=== PATIENT | male | born 1995 | race Hispanic/Latino ===

== ENCOUNTER 2022-11-29 14:07 | Emergency (ER) | payer SELFPAY ==
--- NOTE | ~2022-11-29 | CT_ITS ---
EXAMINATION: CT brain wo con DATE: 11/29/2022 20:42 INDICATION: Head trauma with subsequent headache for 4 days. Blurred vision in left eye. TECHNIQUE: Computed tomography (CT) of the head was performed without intravenous contrast. The mA wa s adjusted according to patient size. Iterative reconstruction technique was employed. Exam dose: 60 5.33 mGy-cm total exam DLP. COMPARISON: None FINDINGS: No intracranial mass lesion or hemorrhage or cerebrovascular accident. No midline shift or mass effect effect. Normal ventricular size. Normal marmolejo-white matter differentiation. No subdural or epidural hematoma. Disconjugate gaze is noted.. No fracture or bone destruction of the cranial vault. Included paranasal sinuses and mastoid air cells are well-developed and aerated. IMPRESSION: Disconjugate gaze. No intracranial abnormality is detected Reviewed, dictated and finalized at [facility]. Reviewed, dictated and finalized at [facility].
[2022-11-29 14:43] VITALS: BP 137/71; PULSE 72; RESP 16; TEMP 36.6; O2SAT 100
[2022-11-29] MEDS: SODIUM CHLORIDE 0.9% IV 1,000 ML 999 ML IV CONT (20:32)
--- NOTE | 2022-11-29 20:32 | ED.GENADULT ---
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 Reports headache is primarily on the left side and radiates somewhat into the left side of the face. States he has had intermittent vision blurring of the left eye since the injury. Also reports associated nausea. Denies any LOC at the time of injury. Denies numbness, weakness, speech change, inability to walk, dizziness, lightheadedness, any further site of pain or injury <MALI Erickson Last Filed: 11/29/22 22:45> Related Data Allergies/adverse reactions: Allergies Allergy/AdvReac Type Severity Reaction Status Date / Time No Known Allergies Allergy Verified 11/29/22 20:28 <Adam Whitfield PA-C - Last Filed: 11/29/22 22:45> Review of Systems Review of Systems: All systems as dictated in HPI <MALI Erickson Last Filed: 11/29/22 22:45> Exam Narrative: GENERAL: Well-appearing, well-nourished, and in no acute distress. HEAD: Normocephalic, atraumatic. EYES: PERRLA and EOMI. he does have some mild pain of the left eye with extraocular movements. ENT: Nares clear, no rhinorrhea or epistaxis. Mucous membranes moist. Oropharynx without tonsillar hypertrophy exudate or other lesions. NECK: Supple. No adenopathy or masses. CHEST: No respiratory distress. Clear to auscultation. No wheezes rales or rhonchi HEART: Regular rate and rhythm. No murmur heard. Normal peripheral pulses. ABDOMEN: Soft, nontender, nondistended, normal active bowel sounds. MSK: Normal range of motion. No edema. SKIN: Warm, dry, no rash. No wounds. NEURO: Alert and oriented x3. No focal deficits. Cranial nerves II through XII intact. 5 out of 5 strength and sensation in the upper and lower extremities. PSYCH: Normal mood and affect. <Adam Whitfield PA-C - Last Filed: 11/29/22 22:45> Course [employer]/PA Physician Supervision I agree with midlevel documentation; I performed the medical decision making component of this evaluation. <Apoorva Becker MD - Last Filed: 11/29/22 22:16> Vital Signs Vital signs: Vital Signs Temperature 97.8 F 11/29/22 14:43 Pulse Rate 72 11/29/22 14:43 Respiratory Rate 16 11/29/22 14:43 Blood Pressure 137/71 11/29/22 14:43 Pulse Oximetry 100 11/29/22 14:43 Oxygen Delivery Room Air 11/29/22 14:43 Temperature 97.9 F 11/29/22 21:56 Pulse Rate 75 11/29/22 21:56 Respiratory Rate 18 11/29/22 21:56 Blood Pressure 148/97 H 11/29/22 21:56 Pulse Oximetry 100 11/29/22 21:56 Oxygen Delivery Room Air 11/29/22 14:43 <Adam Whitfield PA-C - Last Filed: 11/29/22 22:45> Vital Signs Temperature 97.8 F 11/29/22 14:43 Pulse Rate 72 11/29/22 14:43 Respiratory Rate 16 11/29/22 14:43 Blood Pressure 137/71 11/29/22 14:43 Pulse Oximetry 100 11/29/22 14:43 Oxygen Delivery Room Air 11/29/22 14:43 Temperature 97.9 F 11/29/22 21:56 Pulse Rate 75 11/29/22 21:56 Respiratory Rate 18 11/29/22 21:56 Blood Pressure 148/97 H 11/29/22 21:56 Pulse Oximetry 100 11/29/22 21:56 Oxygen Delivery Room Air 11/29/22 14:43 <Samantha. MD Eugenio - Last Filed: 11/29/22 22:16> [facility]
[2022-11-29] MEDS: PROCHLORPERAZINE EDISYLATE 10 MG/2 ML VIAL IV PUSH (20:33)
[2022-11-29] MEDS: KETOROLAC 15 MG/ML VIAL (*BKC) IV PUSH (20:33)
[2022-11-29] MEDS: diphenhydrAMINE HCl INJ 50 MG/ML VIAL 25 MG IV PUSH (20:33)
[2022-11-29 21:56] VITALS: BP 148/97; PULSE 75; RESP 18; TEMP 36.6; O2SAT 100
== END 2022-11-29 22:08 | disposition home or self-care (01) ==
PROVIDERS: Emergency Provider Physician Assistant
DX: G44.309 Post-traumatic headache, unspecified, not intractable (principal); S06.0XAA Concussion with loss of consciousness status unknown, initial encounter; W22.09XA Striking against other stationary object, initial encounter
CPT/HCPCS: 70450; 96361; 96374; 96375; 99284; J0780; J1200; J1885; J7030